=== PATIENT | female | born 1995 | race Caucasian/White ===

== ENCOUNTER 2019-05-15 14:13 | Outpatient (CLI) | payer OTHER ==
--- NOTE | 2019-05-15 15:36 | ULT ---
EXAM: OB ultrasound COMPARISON: None HISTORY: female. Evaluate size, dates, and anatomy. TECHNIQUE: Multiplanar grayscale and color Doppler transabdominal sonographic images are obtained. FINDINGS: There is a single intrauterine gestation in breech presentation. Cardiac Doppler demonstrat es heart tones with a heart rate of 144 beats per minute. The placenta is located anteriorly and fundal without evidence of placenta previa. Anechoic area is seen within the scott e of the placenta likely due to either a venous ham or area of fibrin deposition. There is a normal amount of amniotic fluid with an amniotic fluid index of 14.76 centimeters. The cervical lengt h based on transabdominal imaging measures 3.69 centimeters. biometry measurements: BPD 6.2 cm -- 25 weeks 2 days HC 23.78 cm -- 25 weeks 6 days AC 21.09 cm -- 25 weeks 5 days FL 4.97 cm -- 26 weeks 6 days The estimated gestational age by ultrasound is 26 weeks with an JIA on08/21/2019. Gestational age by t he last menstrual period is 25 weeks 5 days. The estimated weight by ultrasound is 883 g (1 pound, 15 ounces). This represents 53 percentile for weight. A 4 chambered heart is visualized. The cerebellum, visualized portions of the spine, kidneys, u rinary bladder, and cord insertion demonstrate a normal sonographic appearance. There is suggestion of a three-vessel cord.. No anomalies are seen. IMPRESSION: 1. Single intrauterine gestation in breech presentation with heart tones documented. Estimated gestational age by ultrasound is 26 week. 2. Estimated weight is 883 g (1 pound, 15 ounces). 3. Amniotic fluid index is 14.76 centimeters.
== END 2019-05-15 14:14 | disposition home or self-care (01) ==
LOC: BICULT 14:13
DX: O09.92 Supervision of high risk pregnancy, unspecified, second trimester (principal); Z3A.26 26 weeks gestation of pregnancy
CPT/HCPCS: 76805

== ENCOUNTER 2019-07-03 15:35 | Outpatient (CLI) | payer OTHER ==
--- NOTE | 2019-07-03 16:20 | ULT ---
Exam: Limited OB ultrasound HISTORY: Evaluate growth. COMPARISON: none TECHNIQUE: Sagittal and transverse imaging of the gravid uterus is performed FINDINGS: Single intrauterine gestation Presentation: Vertex Cervix: Limited evaluation due to shadowing. Questionable cervical length between 2.5 and 2.8 cm. Anterior placenta. No previa. Amniotic fluid index is 12.1 cm heart tones with a rate of 132 bpm Small right-sided hydrocele. biometry: BPD 8.24 cm, 33 weeks 1 day Head circumference 30.93 cm, 34 weeks 4 days Abdominal circumference 28.98 cm, 33 weeks 0 days Femur length 6.45 cm, 33 weeks 2 days Average age by sonography is 33 weeks 6 days. Estimated delivery date by sonography is 08/15/2019 Estimated weight is 2152 g +/- 318 g IMPRESSION: 1. Single intrauterine gestation with heart tones. Average age by sonography is 33 weeks 6 days . 2. Questionable small right-sided hydrocele 3. Suboptimal evaluation the cervix due to shadowing. Reports cervical length is between 2.5 and 2.8 cm. Results study discussed with Dr. Homa Ann 07/03/2019 at 4:19 PM Code CR
== END 2019-07-03 15:36 | disposition home or self-care (01) ==
LOC: ULT 15:35
PROVIDERS: ATTEND Obstetrics & Gynecology
DX: O09.93 Supervision of high risk pregnancy, unspecified, third trimester (principal); Z3A.33 33 weeks gestation of pregnancy
CPT/HCPCS: 76815

== ENCOUNTER 2019-08-06 04:18 | Inpatient (IN) | payer OTHER ==
[2019-08-06 05:09] VITALS: BMI 31.6
[2019-08-06] MEDS ORDERED: Ondansetron PF 4 MG/2 ML Vial IVP PRN ×2 (08:19→12:21)
[2019-08-06] MEDS ORDERED: HYDROcodone/Acetaminophen 5/325 mg Tablet PO PRN ×4 (08:19→12:21)
[2019-08-06] MEDS ORDERED: hydrALAZINE 20 MG/ML VIAL SLOW IVP PRN ×2 (08:19→12:21)
[2019-08-06] MEDS ORDERED: Butorphanol Tartrate 1 MG/ML VIAL SLOW IVP PRN (08:19)
[2019-08-06] MEDS ORDERED: Promethazine HCl 25 MG/ML VIAL IM PRN (08:19)
[2019-08-06] MEDS ORDERED: Ibuprofen 800 MG TAB PO PRN (08:19)
[2019-08-06] MEDS ORDERED: Docusate 100 MG CAP PO PRN (08:19)
[2019-08-06] MEDS ORDERED: NS / Oxytocin 40 units/1000ml 1,000 ML IV PRN (08:19)
[2019-08-06] MEDS ORDERED: Lidocaine 1% (PF) 30 ML VIAL SC PRN (08:19)
[2019-08-06] MEDS ORDERED: Lactated Ringer's 1,000 ML IV SCH (08:30)
[2019-08-06 10:05] LABS: Hemoglobin 10.1 g/dL (12.0-16.0); Mean Corpuscular HGB CONC 32.8 g/dL (32.0-36.0); Mean Corpuscular Hemoglobin 23.6 pg (27.0-31.0); Mean Corpuscular Volume 72.1 fL (78.0-98.0); Mean Platelet Volume 9.8 fL (7.4-10.4); Platelet Count 209 thou/uL (130-400); Red Blood Cell (RBC) Count 4.27 mill/uL (4.20-5.40); White Blood Cell (WBC) Count 13.5 thou/uL (4.8-10.8)
[2019-08-06 10:08] LABS: HBSAg Index 0.13 S/CO (0-0.99); Hep B Surf Ag Non-Reactive S/CO (NonReactive); Syphilis Antibody Nonreactive (Nonreactive)
[2019-08-06] MEDS ORDERED: Lidocaine 1% (PF) 30 ML VIAL ONE (11:09)
[2019-08-06] MEDS ORDERED: NS / Oxytocin 40 units/1000ml 1,000 ML ONE (11:09)
[2019-08-06] MEDS ORDERED: Bisacodyl 10 MG SUPP PR PRN (12:21)
[2019-08-06] MEDS ORDERED: Lanolin Ointment 7 GM TUBE TOP PRN (12:21)
[2019-08-06] MEDS ORDERED: Benzocaine-Menthol 82.5 ML CAN TOP PRN (12:21)
[2019-08-06] MEDS ORDERED: Milk Of Magnesia 30 ML UDCUP PO PRN (12:21)
[2019-08-06] MEDS ORDERED: Preparation H Ointment 28 GM TUBE PR PRN (12:21)
[2019-08-06] MEDS ORDERED: Adacel (T-DAP) 0.5 ML SYRINGE IM ONE (12:21)
[2019-08-06] MEDS ORDERED: NS / Oxytocin 40 units/1000ml 1,000 ML IV SCH (12:30)
--- NOTE | 2019-08-06 13:05 | DN ---
DATE OF PROCEDURE: 08/06/2019 PREOPERATIVE DIAGNOSES: 1. A 23-year-old, G2, P0-1-0-1 at 37 and 6 weeks, presented in active labor. 2. History of labor. 3. Late transfer of care. 4. GBS negative. 5. Desires natural delivery. 6. Father of the baby with a history of neurofibromatosis, but declined genetics testing in care. POSTOPERATIVE DIAGNOSES: 1. A 23-year-old, G2, P0-1-0-1 at 37 and 6 weeks, presented in active labor. 2. History of labor. 3. Late transfer of care. 4. GBS negative. 5. Desires natural delivery. 6. Father of the baby with a history of neurofibromatosis, but declined genetics testing in care. 7. Live born male with Apgars of 9 and 9 at 1 and 5 minutes respectively, weight unavailable at the time of dictation. PROCEDURE PERFORMED: Spontaneous vaginal delivery. ANESTHESIA: None. ESTIMATED BLOOD LOSS: 200 mL. CLINICAL HISTORY: The patient is a 23-year-old, G2, P0-1-0-1, who presented at 37 and 6 weeks with a complaint of regular painful contractions. She was noted to be 4 to 4.5 cm on repetitive exams and then advanced to 6 cm and was admitted. The patient was noted to be intact. She desired a low intervention delivery without pain medications. She was known to be GBS negative and had an uneventful course. She had a history of delivery with her 1st delivery, however, with this , she declined progesterone administration or genetics counseling for the father's history of neurofibromatosis. The patient kept her appointments after transferring at approximately 22 weeks and was carefully monitored. On the day of presentation, she was noted to be 4 cm. The week prior, she had been 3 to 3.5 cm and 80% effaced per nurse practitioner. After having a category 1 NST and after IV status was established, an amniotomy was performed for clear fluid. The patient then progressed on her own to a complete and +2 station and began to push. DETAILS OF PROCEDURE: With good maternal effort, the patient was able to push the vertex to . The head was delivered and restituted to the maternal left. The anterior shoulder followed by the posterior shoulder followed by the remainder of the 's body was delivered. The infant was vigorous and cried spontaneously upon delivery and was bulb suctioned after delivering and the cord was doubly clamped and cut by the father of the baby. The was placed on the maternal abdomen for continued stimulation and care. Cord blood was obtained and then the placenta was delivered spontaneously intact with a three-vessel cord. Exploration of the vagina, introitus, and cervix noted no lacerations. She with fundal massage was noted to be firm. The patient was able to recover in her Labor and Delivery room in satisfactory condition with her . Again, the infant was a live born male with Apgars of 9 and 9 at 1 and 5 minutes respectively. Estimated blood loss was 200 mL. Special medications none. All needle, sponge, lap, and instrument counts were correct x2 at the end of the procedure. There were no other issues surrounding this delivery. Job ID: [id number]
[2019-08-06] MEDS: Ferrous Sulfate 325 MG TAB PO SCH (17:13)
[2019-08-06] MEDS: Ibuprofen 800 MG TAB PO SCH (17:15)
[2019-08-06] MEDS ORDERED: FLU VACC QS2019-20(6MOS UP)/PF 60 MCG/0.5 ML SYRINGE IM ONE (21:00)
[2019-08-07] MEDS: Ibuprofen 800 MG TAB PO SCH ×3 (06:37→14:14)
[2019-08-07] MEDS: Docusate Calcium (SURFAK) 240 MG CAP PO SCH ×2 (06:37→09:30)
[2019-08-07 08:35] VITALS: TEMP 98.2
[2019-08-07] MEDS ORDERED: FLU VACC QS2019-20(6MOS UP)/PF 60 MCG/0.5 ML SYRINGE IM ONE (09:00)
[2019-08-07] MEDS ORDERED: Prenatal Vitamin 1 TAB PO SCH (09:00)
[2019-08-07] MEDS: Ferrous Sulfate 325 MG TAB PO SCH (09:29)
[2019-08-07 12:13] VITALS: BP 102/60
== END 2019-08-07 18:00 | disposition home or self-care (01) | DRG 807 ==
LOC: L&D/OP 04:18 → L&D-LIB 09:18 → 3SW 15:18
PROVIDERS: ADMIT Obstetrics & Gynecology; ATTEND Obstetrics & Gynecology
PROC: 10E0XZZ Delivery of Products of Conception, External Approach (ICD-10-PCS; principal; 2019-08-06)
PROC: 10907ZC Drainage of Amniotic Fluid, Therapeutic from Products of Conception, Via Natural or Artificial Opening (ICD-10-PCS; 2019-08-06)
DX: O99.02 Anemia complicating childbirth (principal); Z37.0 Single live birth; D64.9 Anemia, unspecified; Z3A.37 37 weeks gestation of pregnancy
CPT/HCPCS: 36415; 85027; 86780; 86850; 86900; 86901; 87340; 99285; J2001